=== PATIENT | female | born 1955 | race Caucasian/White ===

== ENCOUNTER 2017-05-31 09:35 | Emergency (ER) | payer BC ==
[2017-05-31] MEDS ORDERED: Albuterol 2.5 MG/3 ML NEB.SOL* (0.083%) INH ONE (09:42)
--- NOTE | 2017-05-31 09:48 | UC ---
Respiratory Complaint HPI - HPI Summary HPI Summary: Patient has ahd a cough for sukhwinder past week, she states the past few days her chest is tight and cough has increased, hx of smoking - History of Current Complaint Stated Complaint: COUGH,CONGESTION Time Seen by Provider: 05/31/17 09:38 Hx Obtained From: Patient ?: No Onset/Duration: Sudden Onset, Lasting Days - 7 Timing: Constant Severity Initially: Mild Severity Currently: Moderate Character: Cough: Nonproductive Aggravating Factors: Allergens, Exertion, Deep Breaths, Recumbent Position Alleviating Factors: Nothing Associated Signs And Symptoms: Positive: Wheezing - Allergies/Home Medications Allergies/Adverse Reactions: Allergies Allergy/AdvReac Type Severity Reaction Status Date / Time No Known Allergies Allergy Verified 05/31/17 10:05 Home Medications: Home Medications Acetaminophen [Acetaminophen Extra Stren] 1,000 mg PO ONCE PRN 05/31/17 [ History Confirmed 05/31/17] Phenylephrine-Chlorpheniramine [Anusha-Oxford Plus Cold &] 1 cap PO ONCE PRN [History Confirmed 05/31/17] PMH/Surg Hx/FS Hx/Imm Hx Previously Healthy: Yes - Family History Known Family History: Positive: Hypertension, Respiratory Disease Review of Systems Constitutional: Negative Skin: Negative Eyes: Negative ENT: Negative Respiratory: Shortness Of Breath, Cough Cardiovascular: Negative Gastrointestinal: Negative Genitourinary: Negative Motor: Negative Neurovascular: Negative Musculoskeletal: Negative Neurological: Negative Is Patient Immunocompromised?: No All Other Systems Reviewed And Are Negative: Yes Physical Exam Triage Information Reviewed: Yes Appearance: No Pain Distress, Well-Nourished, Ill-Appearing Vital Signs Reviewed: Yes Eye Exam: Normal ENT: Positive: Pharynx normal, TMs normal Dental Exam: Normal Neck exam: Normal Neck: Positive: Supple, Nontender, No Lymphadenopathy Respiratory: Positive: Chest non-tender, Normal breath sounds, No respiratory distress, No accessory muscle use, Wheezing, Inspiration Cardiovascular Exam: Normal Cardiovascular: Positive: RRR, No Murmur, Pulses Normal Abdominal Exam: Normal Abdomen Description: Positive: Nontender, No Organomegaly, Soft Bowel Sounds: Positive: Present Musculoskeletal Exam: Normal Neurological Exam: Normal Psychological Exam: Normal Skin Exam: Normal Respiratory Course/Dx - Course Course Of Treatment: hx obtained, exam performed ,meds reviewed, neb treatment given, inhaler, and prednisone prescribed. - Differential Dx/Diagnosis Differential Diagnosis/HQI/PQRI: Asthma, Bronchitis, CHF, Influenza, Laryngitis , Sinusitis Provider Diagnoses: COPD history. bronchospasm Discharge - Discharge Plan Condition: Stable Disposition: HOME Prescriptions: Albuterol HFA INHALER* [Ventolin HFA Inhaler*] 2 puff INH Q4H PRN #1 mdi PRN Reason: Cough predniSONE TAB* [Deltasone TAB*] 40 mg PO DAILY #14 tab Patient Education Materials: Bronchospasm (ED) Referrals: Yelena Medina MD [Medical Doctor] - Additional Instructions: 1. take the medication as prescribed. 2 Follow up with your primary physician if your symtpoms do not improve.
[2017-05-31 10:10] VITALS: BP 128/72
== END 2017-05-31 10:33 | disposition home or self-care (01) ==
LOC: UCCORT 09:35
DX: J98.01 Acute bronchospasm (principal); J44.9 Chronic obstructive pulmonary disease, unspecified
CPT/HCPCS: 99202; G0463

== ENCOUNTER 2018-03-03 07:10 | Day surgery (SDC) | payer BC ==
[~2018-03-03 07:10] MED LIST: Acetaminophen TAB* 325 MG PO PRN; Buffered Lidocaine 0.9% SYRIN* 5 ML/SYR SYRINGE INTRADERM ONE
[2018-03-03] MEDS ORDERED: Midazolam* 1 MG/ML 2 ML VIAL (2 MG) ONE ×2 (09:04→09:36)
[2018-03-03] MEDS ORDERED: fentaNYL* 50 MCG/ML 2 ML VIAL (100 MCG VIAL) ONE (09:04)
[2018-03-03 10:09] VITALS: BP 103/68
--- NOTE | 2018-03-03 11:48 | OP ---
DATE OF OPERATION: 03/03/2018. DATE OF : 1955. SURGEON: Jerry Gonzalez M.D. PREOPERATIVE DIAGNOSIS: Cataract right eye. POSTOPERATIVE DIAGNOSIS: Cataract right eye. OPERATIVE PROCEDURE: Extracapsular cataract extraction with intraocular lens implant right eye. PROCEDURE: The patient was brought to the operating room after being given 1/2% Alcaine with epineph rine drops in the preoperative area. The eye was prepped and draped in the usual sterile fashion. S terile drape and eyelid speculum were placed. Again, topical 1/2% Alcaine with epinephrine was given . A paracentesis incision was made at the 9 o'clock position with the No.75 blade. Clear cornea inc ision 2.2 x 2.2-mm was created at the 12 o'clock position starting at the anterior limbus using the 2 .2-mm keratome. The anterior chamber was irrigated with 0.4 mL of 1% non-preservative intracameral l idocaine and filled with DisCoVisc. A capsulorrhexis was completed using the cystotome and the Utrat a forceps. Hydrodissection was performed with balanced salt solution. The lens nucleus was removed w ith the Phacoemulsification handpiece without incident. Cortex was removed with the irrigation-aspir ation handpiece. The capsular bag was re-inflated using DisCoVisc and an [id number] 30 implant was inser ngozi with the shooter, oriented to the 83 degree meridian. Horizontal reference alex were made with the patient in a seated position in the preoperative area. The irrigation-aspiration handpiece was u sed to remove all residual DisCoVisc. The eye was refilled with balanced salt solution and the wound checked and found to be watertight. Topical Maxitrol drops were given. [id number]/[facility] #: [id number]
[2018-03-03] MEDS ORDERED: acetaZOLAMIDE TAB* 250 MG ONE (13:47)
[2018-03-03] MEDS ORDERED: Ketorolac 0.5% OPHTH (NF) 0.5 % 5 ML BTL ONE (13:47)
[2018-03-03] MEDS ORDERED: Povidone Iodine 5% OPTH* 30 ML BTL ONE (13:47)
[2018-03-03] MEDS ORDERED: Proparacaine 0.5% OPHTH.SOL* 15 ML BTL ONE (13:47)
[2018-03-03] MEDS ORDERED: Cyclopentolate 1% OPTH.SOL* 2 ML BTL ONE (13:47)
[2018-03-03] MEDS ORDERED: Lidocaine 1%* 5 ML VIAL ONE (13:47)
[2018-03-03] MEDS ORDERED: Neomycin/Polymy/Dex OPTH.SUSP* MAXITROL 0.1% 5 ML ONE (13:47)
[2018-03-03] MEDS ORDERED: Lidocaine 2% EPI 1:200000 MPF*10-20 ML VIAL ONE (13:47)
[2018-03-03] MEDS ORDERED: Phenylephrine 2.5% OPTH.SOL* 2 ML BTL ONE (13:47)
== END 2018-03-03 10:14 | disposition home or self-care (01) ==
LOC: OREAST 07:10
PROVIDERS: ATTEND Specialist
DX: H25.811 Combined forms of age-related cataract, right eye (principal); H50.53 Vertical heterophoria; H53.022 Refractive amblyopia, left eye; Z72.0 Tobacco use; Z85.038 Personal history of other malignant neoplasm of large intestine; M19.90 Unspecified osteoarthritis, unspecified site; F32.9 Major depressive disorder, single episode, unspecified
CPT/HCPCS: A9270-GY; J2250; J3010; V2787

== ENCOUNTER 2019-05-10 10:03 | Emergency (ER) | payer MEDICARE, BC ==
--- OUTSIDE RECORDS SUMMARY | 2019-05-10 10:21 | XMS REPORT | Continuity of Care Document ---
:1955 External Reference #:[id number] Author Name Jerry Gonzalez M.D. Address [address] [place] [address] Care Team Providers Name Role Phone Sherrie Salmeron M.D. 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 Onset: 02/05/2018 Refractive amblyopia Jerry Gonzalez M.D. Onset: 02/05/2018 Presence of intraocular lens Jerry Gonzalez M.D. Onset: 02/05/2018 Vitreous degeneration Jerry Gonzalez M.D. Onset: 04/28/2019 Social History Type Date Description Comments Sex Unknown ETOH Use Denies alcohol use Tobacco Use Start: Unknown Light tobacco smoker (10 or fewer cigarettes/day) Recreational Drug Use Denies Drug Use Smoking Status Reviewed: 04/28/19 Light tobacco smoker (10 or fewer cigarettes/day) Allergies, Adverse Reactions, Alerts Description No Known Drug Allergies Medications Active Medications SIG Qnty Indications Ordering Provider Date Artificial Tears as needed Jerry Gonzalez M.D. 04/27/2019 0.2-0.2-1% Solution Tylenol prn Unknown 325mg Capsules Multi Vitamin Daily Unknown Tablets Immunizations Description No Information Available Vital Signs Description No Information Available Results Description No Information Available Procedures Description No Information Available Medical Devices Description No Information Available Encounters Description No Information Available Assessments Date Code Description Provider 04/28/2019 H43.813 Vitreous degeneration, bilateral Jerry Gonzalez M.D. 04/28/2019 Z96.1 Presence of intraocular lens Jerry Gonzalez M.D. 04/28/2019 H53.022 Refractive amblyopia, left eye Jerry Gonzalez M.D. 04/28/2019 H50.53 Vertical heterophoria Jerry Gonzalez M.D. Plan of Treatment 04/28/2019 - Jerry Gonzalez M.D.H43.813 Vitreous degeneration, bilateralComments:Smoking can increase the risk of developing or worsening any eye related disease, as well as affect your overall health. If you are a smoker , we strongly recommend that you quit.If you are not a smoker, we strongly recommend that you do not start. You have a Posterior Vitreous Detachment. If you have any changes in your floaters or flashing lights, please contact this office.Follow up:2 Week Follow Up [facility] You can expect to have your eyes dilated at your next visit. If Dr. Gonzalez orders any additional testing, it may require extra time. We recommend that you bring sunglasses, as dilation drops often make you light sensitive until they wear off. We always recommend you bring someone to drive you home if you are uncomfortable driving with your eyes dilated. If you have any questions before your next visit, feel free to call our office at .Z96.1 Presence of intraocular lensComments:The artificial lens implants in both eyes appear to be stable at this time.H53.022 Refractive amblyopia, left eyeComments:You have Amblyopia in your left eye. You have never been able to see perfectly out of this eye.H50.53 Vertical heterophoria Functional Status Description No Information Available Mental Status Description No Information Available Referrals Description No Information Available
[2019-05-10 10:48] VITALS: BP 114/68
[2019-05-10] MEDS ORDERED: Albuterol 2.5 MG/3 ML NEB.SOL* (0.083%) INH ONE (10:52)
[2019-05-10] MEDS ORDERED: predniSONE TAB* 20 MG PO ONE (10:53)
--- NOTE | 2019-05-10 11:47 | UC ---
Respiratory Complaint HPI - HPI Summary HPI Summary: cough x 3 days cough is dry worse with deep breathing , nothing makes it better , mild nasal congestion no fever, no chills, + chest tightness and sob no chest pain - History of Current Complaint Chief Complaint: UCGeneralIllness Stated Complaint: COUGH HEADACHE Time Seen by Provider: 05/10/19 10:46 Hx Obtained From: Patient Onset/Duration: Gradual Onset, Lasting Days - 23, Still Present Timing: Constant Severity Initially: Moderate Severity Currently: Moderate Pain Intensity: 0 Pain Scale Used: 0-10 Numeric Character: Cough: Nonproductive Aggravating Factors: Exertion, Deep Breaths Alleviating Factors: Nothing Associated Signs And Symptoms: Positive: Dyspnea, Chills, URI, Nasal Congestion. Negative: Fever, Pleuritic Chest Pain - Allergies/Home Medications Allergies/Adverse Reactions: Allergies Allergy/AdvReac Type Severity Reaction Status Date / Time No Known Allergies Allergy Verified 05/10/19 10:48 PMH/Surg Hx/FS Hx/Imm Hx Respiratory History: COPD Cancer History: Colorectal Cancer - Surgical History Surgical History: Yes Surgery Procedure, Year, and Place: 3 SURGERIES-colorectal, colostomy and reversal. LEFT EYE CATARACT[place]09/2017[place] - Family History Known Family History: Positive: Hypertension, Respiratory Disease - Social History Alcohol Use: None Substance Use Type: None Smoking Status (MU): Light Every Day Tobacco Smoker Type: Cigarettes Amount Used/How Often: 1/2 pack daily X OFF AND ON 20 YEARS Review of Systems All Other Systems Reviewed And Are Negative: Yes Constitutional: Positive: Negative Skin: Positive: Negative Eyes: Positive: Negative ENT: Positive: Nasal Discharge Respiratory: Positive: Shortness Of Breath, Cough Is Patient Immunocompromised?: No Physical Exam Triage Information Reviewed: Yes Appearance: Well-Appearing, No Pain Distress, Well-Nourished Vital Signs: Initial Vital Signs Temp 99.6 F 05/10/19 10:42 Pulse 101 05/10/19 10:42 Resp 24 05/10/19 10:42 BP 114/68 05/10/19 10:42 Pulse Ox 91 05/10/19 10:42 Vital Signs Reviewed: Yes Eye Exam: Normal Eyes: Positive: Conjunctiva Clear ENT: Positive: Normal ENT inspection, Hearing grossly normal, Pharynx normal, Nasal drainage, TMs normal Neck: Positive: Supple, Nontender, No Lymphadenopathy Respiratory: Positive: Chest non-tender, Decreased breath sounds. Negative: Respiratory distress Cardiovascular: Positive: Tachycardia Skin Exam: Normal Diagnostics - Radiology No standard instances Radiology Interpretation Completed By: Radiologist Summary of Radiographic Findings: chest xray : COPD Respiratory Course/Dx - Differential Dx/Diagnosis Provider Diagnosis: COPD (chronic obstructive pulmonary disease) Discharge ED - Sign-Out/Discharge Documenting (check all that apply): Patient Departure All imaging exams completed and their final reports reviewed: Yes - Discharge Plan Condition: Stable Disposition: HOME Prescriptions: Albuterol HFA INHALER* [Ventolin HFA Inhaler*] 2 puff INH Q6H PRN #1 mdi PRN Reason: Shortness Of Breath Azithromycin TAB* [Zithromax TAB (Z-JASON) 250 mg #6 tabs] 2 tab PO .TODAY, THEN 1 DAILY #1 jason predniSONE [Prednisone 20 MG TAB] 20 mg PO BID #10 tablet Patient Education Materials: Acute Bronchitis (ED), COPD (Chronic Obstructive Pulmonary Disease) (ED) Referrals: No Primary Care Phys,NOPCP [Primary Care Provider] - 5 Days - Billing Disposition and Condition Condition: STABLE Disposition: Home
== END 2019-05-10 11:29 | disposition home or self-care (01) ==
LOC: UCCORT 10:03
DX: J44.9 Chronic obstructive pulmonary disease, unspecified (principal); Z85.038 Personal history of other malignant neoplasm of large intestine; F17.210 Nicotine dependence, cigarettes, uncomplicated
CPT/HCPCS: 71046; 99212; G0463; J7512